=== PATIENT | male | born 1965 ===

== ENCOUNTER → 2019-09-08 | Outpatient (CLI) | payer BC | LOC: ZCOL.LAB 07:35 | DX: Z20.828 Contact with and (suspected) exposure to other viral communicable diseases (principal) ==

== ENCOUNTER → 2019-09-27 | Outpatient (CLI) | payer BC | LOC: ZCOL.LAB 15:38 | DX: Z20.828 Contact with and (suspected) exposure to other viral communicable diseases (principal) ==